=== PATIENT | male | born 1985 | race Caucasian/White ===

== ENCOUNTER → 2019-03-19 | Outpatient (CLI) | payer OTHER ==
--- NOTE | 2019-03-23 08:38 | TST ---
[place] [address] [facility] STRESS TEST Name: GENEVIEVE BELLO Room: [facility]#: [id number] Admission: 03/19/19 Attend Phys: Jennifer Posey Discharge: Date of : 85 Date of Service: 03/19/19 1417 Report #: [id number] THIS REPORT FOR: //name// CC: Jennifer Winkler MD DATE OF SERVICE: 03/19/2019 PROCEDURE: Exercise stress test. FINDINGS: Exercise stress test was requested in this patient with a history of chest pain. The patient was exercised on a Herve protocol from a pretest heart rate of 75, blood pressure 123/76. The patient was able to exercise for 9 minutes 59 seconds achieving a peak heart of 179, which is greater than 90% of maximum predicted heart rate for the patient's age. His peak blood pressure is 199/81. In recovery, the patient had heart rate 99, blood pressure 129/72. The patient denied chest pains. Exercise was terminated because of achieving target heart rate. The patient's resting ECG showed a normal sinus rhythm with no significant ST or T-wave change noted at baseline. With exercise, there was no arrhythmia noted. The patient did develop J-point depression with exercise, but there was no significant ST-segment depression noted at 80 milliseconds after the J-point on the ECG. IMPRESSION: 1. Adequate exercise tolerance. 2. No chest pain with exercise. 3. No ischemic ST segment changes noted. 4. Negative exercise stress test for myocardial ischemia. 5. Low risk exercise stress test for predicting future cardiac events. <ELECTRONICALLY SIGNED> By: Michael Lyn MD, FACC 03/23/19 0838 1417 0004 Michael Lyn MD, FACC /nt
== END ==
LOC: M.CRD 12:44
DX: R07.2 Precordial pain (principal)